=== PATIENT | female | born 1965 | race African-American/Black ===

== ENCOUNTER 2017-04-21 20:08 | Inpatient (IN) | payer MEDICAID, OTHER ==
[~2017-04-21] VITALS: Ht 165.1 cm; Wt 115.2 kg
[2017-04-21] MEDS ORDERED: MORPHINE SULFATE 4 MG/ML CPJ (NOT FOR IM USE) IV STA (22:26)
[2017-04-21] MEDS ORDERED: SODIUM CHLORIDE 0.9% 1,000 ML IV ONE (22:26)
[2017-04-21] MEDS ORDERED: FAMOTIDINE 20MG/2ML VIAL IV STA (22:26)
[2017-04-21] MEDS ORDERED: ONDANSETRON HCL 4MG/2ML VIAL IV STA (22:26)
[2017-04-21 22:43] LABS: BASOPHILS % 0.7 % (0.0-2.0); EOSINOPHILS % 0.7 % (0.0-5.0); HEMATOCRIT. 41.6 % (36.0-48.0); LYMPHOCYTES % 12.1 % (20.0-50.0); MEAN CORPUSCULAR VOLUME 83.3 fL (81.0-99.0); MEAN PLATELET VOLUME 8.9 fl (7.4-10.4); MONOCYTES % 10.3 % (2.0-8.0); NEUTROPHILS % 76.2 % (40.0-76.0); PLATELET 401 x1000/uL (130-400); RED CELL DISTRIBUTION WIDTH 14.6 % (11.6-14.6)
[2017-04-21 23:35] LABS: INR 1.3; PROTHROMBIN TIME 13.3 sec (9.4-11.6)
[2017-04-21 23:43] LABS: CARBON DIOXIDE 23 mEq/L (21-32); CHLORIDE 101 mEq/L (98-107); ETHANOL BLOOD < 10 mg/dL; TROPONIN I < 0.02 ng/mL (0.00-0.04)
[2017-04-22 00:37] LABS: CLARITY URINE CLOUDY (CLEAR); COLOR URINE DARK YELLOW (YELLOW); GLUCOSE URINE NEGATIVE (NEGATIVE); KETONES URINE 4+ (NEGATIVE); LEUKOCYTE ESTERASE URINE TRACE (NEGATIVE); NITRITE URINE POSITIVE (NEGATIVE); OCCULT BLOOD URINE NEGATIVE (NEGATIVE); PROTEIN URINE 2+ (NEGATIVE); SPECIFIC GRAVITY URINE 1.038 (1.005-1.030)
[2017-04-22 00:51] LABS: *AMPHETAMINES SCREEN URINE NEGATIVE (NEGATIVE); *BARBITURATES SCREEN URINE NEGATIVE (NEGATIVE); *BENZODIAZEPINES SCREEN URINE NEGATIVE (NEGATIVE); *COCAINE SCREEN URINE NEGATIVE (NEGATIVE); CANNABINOID URINE SCREEN PRESUMTIVE POSITIVE (NEGATIVE); METHADONE URINE SCREEN NEGATIVE (NEGATIVE); OPIATES URINE SCREEN PRESUMTIVE POSITIVE (NEGATIVE); PHENCYCLIDINE URINE SCREEN NEGATIVE (NEGATIVE)
[2017-04-22] MEDS ORDERED: SODIUM CHLORIDE 0.9% 1,000 ML IV ONE (00:59)
[2017-04-22] MEDS ORDERED: LEVOFLOXACIN 750MG PREMIX 150 ML IV SCH (01:00)
[2017-04-22] MEDS ORDERED: METRONIDAZOLE 500 MG PREMIX 100 ML IV SCH (01:00)
[2017-04-22 04:05] VITALS: BP 139/78
[2017-04-22] MEDS ORDERED: CLONIDINE 0.1MG TABLET PO PRN (04:30)
[2017-04-22] MEDS ORDERED: DIPHENHYDRAMINE 50MG/ML VIAL IV PRN (04:30)
[2017-04-22] MEDS ORDERED: MAGNESIUM/ALUMINUM HYDROXIDE/SIMETHICONE 30ML UDC PO PRN (04:30)
[2017-04-22] MEDS ORDERED: ONDANSETRON HCL 4MG/2ML VIAL IV PRN (04:30)
[2017-04-22] MEDS ORDERED: LEVOFLOXACIN 500MG PREMIX 100 ML IV ONE (04:30)
[2017-04-22] MEDS ORDERED: IOHEXOL-300 100 ML BOTTLE ONE (06:00)
[2017-04-22] MEDS ORDERED: SODIUM CHLORIDE 0.9% 10ML VIAL ONE (06:00)
[2017-04-22] MEDS: SODIUM CHLORIDE 0.9% 1,000 ML IV SCH ×2 (07:55→14:33)
[2017-04-22 08:17] VITALS: BP 133/67
[2017-04-22] MEDS ORDERED: ASPI-1159 PO (08:48)
[2017-04-22] MEDS ORDERED: ALBU2.5V13 NEB (08:48)
[2017-04-22] MEDS: FAMOTIDINE 20MG/2ML VIAL IV SCH ×2 (08:49→21:37)
[2017-04-22 09:17] LABS: BASOPHILS % 0.7 % (0.0-2.0); EOSINOPHILS % 0.6 % (0.0-5.0); HEMATOCRIT. 36.7 % (36.0-48.0); HEMOGLOBIN. 12.2 g/dL (12.0-16.0); LYMPHOCYTES % 9.5 % (20.0-50.0); MEAN CORPUSCULAR HEMOGLOBIN 27.7 pg (28.0-32.0); MEAN CORPUSCULAR VOLUME 83.4 fL (81.0-99.0); MEAN PLATELET VOLUME 8.2 fl (7.4-10.4); MONOCYTES % 11.8 % (2.0-8.0); NEUTROPHILS % 77.4 % (40.0-76.0); PLATELET 296 x1000/uL (130-400); RED CELL DISTRIBUTION WIDTH 14.2 % (11.6-14.6)
[2017-04-22 09:32] LABS: CARBON DIOXIDE 27 mEq/L (21-32); CHLORIDE 102 mEq/L (98-107)
[2017-04-22] MEDS: MORPHINE SULFATE 4 MG/ML CPJ (NOT FOR IM USE) IV PRN (10:20)
[2017-04-22 12:00] VITALS: BP 122/68
[2017-04-22 16:00] VITALS: BP 133/68
[2017-04-22] MEDS: ACETAMINOPHEN 325MG TABLET PO PRN (16:52)
[2017-04-22 20:32] VITALS: BP 141/82
[2017-04-23] MEDS: ACETAMINOPHEN 325MG TABLET PO PRN (00:23)
[2017-04-23 00:29] VITALS: BP 155/89
[2017-04-23 04:00] VITALS: BP 152/84
[2017-04-23 06:55] LABS: BASOPHILS % 0.3 % (0.0-2.0); EOSINOPHILS % 0.7 % (0.0-5.0); HEMATOCRIT. 36.6 % (36.0-48.0); HEMOGLOBIN. 11.9 g/dL (12.0-16.0); LYMPHOCYTES % 9.2 % (20.0-50.0); MEAN CORPUSCULAR HEMOGLOBIN 27.3 pg (28.0-32.0); MEAN CORPUSCULAR VOLUME 83.7 fL (81.0-99.0); MEAN PLATELET VOLUME 8.5 fl (7.4-10.4); MONOCYTES % 11.6 % (2.0-8.0); NEUTROPHILS % 78.2 % (40.0-76.0); PLATELET 282 x1000/uL (130-400); RED BLOOD CELL COUNT 4.37 mill/uL (4.2-5.4); RED CELL DISTRIBUTION WIDTH 14.3 % (11.6-14.6)
[2017-04-23 07:02] LABS: INR 1.3; PARTIAL THROMBOPLASTIN TIME 31.9 sec (23.4-31.0); PROTHROMBIN TIME 13.4 sec (9.4-11.6)
[2017-04-23] MEDS: SODIUM CHLORIDE 0.9% 1,000 ML IV SCH ×3 (07:44→21:16)
[2017-04-23 08:00] VITALS: BP 149/88
[2017-04-23 08:19] LABS: CARBON DIOXIDE 26 mEq/L (21-32); CHLORIDE 104 mEq/L (98-107)
[2017-04-23] MEDS: FAMOTIDINE 20MG/2ML VIAL IV SCH ×2 (09:08→21:16)
[2017-04-23] MEDS: LEVOFLOXACIN 500MG PREMIX 100 ML IV SCH (09:08)
[2017-04-23] MEDS: MORPHINE SULFATE 4 MG/ML CPJ (NOT FOR IM USE) IV PRN ×2 (09:32→14:21)
[2017-04-23] MEDS ORDERED: LIDOCAINE HCL 1% 20ML VIAL (Pyxis) INJ INFIL SCH (11:00)
[2017-04-23 12:00] VITALS: BP 171/87
[2017-04-23] MEDS ORDERED: HYDRALAZINE 5 MG in SODIUM CHLORIDE 0.9% 50 ML IV PRN (14:30)
[2017-04-23] MEDS ORDERED: HYDRALAZINE 20MG/ML VIAL IV PRN (15:00)
[2017-04-23 16:00] VITALS: BP 156/89
[2017-04-23 20:00] VITALS: BP 173/87
[2017-04-24] VITALS: BP 146/71
[2017-04-24] MEDS: MORPHINE SULFATE 4 MG/ML CPJ (NOT FOR IM USE) IV PRN (00:33)
[2017-04-24] MEDS: ACETAMINOPHEN 325MG TABLET PO PRN ×2 (00:39→17:11)
[2017-04-24 04:00] VITALS: BP 145/76
[2017-04-24] MEDS: SODIUM CHLORIDE 0.9% 1,000 ML IV SCH (05:31)
[2017-04-24 08:00] VITALS: BP 172/88
[2017-04-24] MEDS: LEVOFLOXACIN 500MG PREMIX 100 ML IV SCH (08:13)
[2017-04-24] MEDS: FAMOTIDINE 20MG/2ML VIAL IV SCH (08:13)
[2017-04-24 12:00] VITALS: BP 156/92
[2017-04-24 16:00] VITALS: BP 156/74
[2017-04-24 18:33] VITALS: BP 153/69
== END 2017-04-24 19:00 | disposition home or self-care (01) | DRG 249 ==
LOC: ER 21:50 → 6EST 04-22 01:08 → ENRESERV 04-22 01:38
PROVIDERS: ADMIT Internal Medicine; ATTEND Internal Medicine
DX: A08.4 Viral intestinal infection, unspecified (principal); R65.11 Systemic inflammatory response syndrome (SIRS) of non-infectious origin with acute organ dysfunction; E43 Unspecified severe protein-calorie malnutrition; K56.60 Unspecified intestinal obstruction; R65.10 Systemic inflammatory response syndrome (SIRS) of non-infectious origin without acute organ dysfunction; L02.211 Cutaneous abscess of abdominal wall; Z68.41 Body mass index [BMI] 40.0-44.9, adult; N39.0 Urinary tract infection, site not specified; I10 Essential (primary) hypertension; J45.909 Unspecified asthma, uncomplicated; E66.9 Obesity, unspecified; Z90.710 Acquired absence of both cervix and uterus; Z90.49 Acquired absence of other specified parts of digestive tract; Z88.8 Allergy status to other drugs, medicaments and biological substances
CPT/HCPCS: 36415; 71010; 74176; 74177; 80048; 80053; 80305; 81001; 83605; 83690; 84484; 85025; 85610; 85730; 87040; 93005; 96365; 96375; 99285; A4216; C1893; G0482; J1956; J2270; J2405; J3490; J7030; Q9967

== ENCOUNTER 2017-05-07 15:18 | Inpatient (IN) | payer MEDICAID ==
[~2017-05-07] VITALS: Ht 165.1 cm; Wt 115.2 kg
[~2017-05-07 15:18] MED LIST: ALBU2.5V13 NEB; ASPI-1159 PO; IOHEXOL-300 100 ML BOTTLE ONE; SODIUM CHLORIDE 0.9% 10ML VIAL ONE
[2017-05-07] MEDS ORDERED: MORPHINE SULFATE 4 MG/ML CPJ (NOT FOR IM USE) IV STA (16:24)
[2017-05-07] MEDS ORDERED: ONDANSETRON HCL 4MG/2ML VIAL IV STA (16:24)
[2017-05-07] MEDS ORDERED: SODIUM CHLORIDE 0.9% 1,000 ML IV ONE ×2 (16:24→16:49)
[2017-05-07] MEDS ORDERED: VANCOMYCIN 1 G PREMIX 200 ML IV ONE (17:00)
[2017-05-07] MEDS ORDERED: PIPERACILLIN/TAZ 3.375G PREMIX 50 ML IV ONE (17:00)
[2017-05-07 17:18] LABS: BASOPHILS % 0.4 % (0.0-2.0); HEMATOCRIT. 39.8 % (36.0-48.0); HEMOGLOBIN. 13.3 g/dL (12.0-16.0); LYMPHOCYTES % 7.4 % (20.0-50.0); MEAN CORPUSCULAR HEMOGLOBIN 27.3 pg (28.0-32.0); MEAN CORPUSCULAR VOLUME 81.7 fL (81.0-99.0); MEAN PLATELET VOLUME 8.4 fl (7.4-10.4); MONOCYTES % 12.5 % (2.0-8.0); NEUTROPHILS % 79.7 % (40.0-76.0); PLATELET 291 x1000/uL (130-400); RED BLOOD CELL COUNT 4.87 mill/uL (4.2-5.4); RED CELL DISTRIBUTION WIDTH 14.9 % (11.6-14.6)
[2017-05-07 17:25] LABS: CHLORIDE 98 mEq/L (98-107); INR 1.3
[2017-05-07 17:33] LABS: CARBON DIOXIDE 24 mEq/L (21-32)
[2017-05-07 20:00] VITALS: BP 152/86
[2017-05-07] MEDS ORDERED: ONDANSETRON HCL 4MG/2ML VIAL IV ONE (21:00)
[2017-05-07 22:00] VITALS: BP 152/86
[2017-05-08] VITALS: BP 153/91
[2017-05-08] MEDS: ONDANSETRON HCL 4MG/2ML VIAL IV PRN ×4 (02:29→23:45)
[2017-05-08] MEDS: DEXT 5%/0.45% NACL 1000ML 1,000 ML IV SCH ×2 (02:30→15:28)
[2017-05-08] MEDS: HYDROMORPHONE HCL/PF 2MG/ML CPJ IV PRN ×4 (02:30→23:45)
[2017-05-08 04:00] VITALS: BP 150/86
[2017-05-08] MEDS: LEVOFLOXACIN 500MG PREMIX 100 ML IV SCH (04:06)
[2017-05-08] MEDS: METRONIDAZOLE 500 MG PREMIX 100 ML IV SCH ×3 (04:06→20:40)
[2017-05-08 08:00] VITALS: BP 116/77
[2017-05-08] MEDS ORDERED: INFLUENZA VIRUS VACCINE 0.5ML SYR IM ONE (08:00)
[2017-05-08] MEDS ORDERED: PNEUMOCOCCAL 23-VAL P-SAC VAC 0.5 ML IM ONE (08:00)
[2017-05-08] MEDS: PANTOPRAZOLE SODIUM 40 MG/VIAL IV SCH (08:31)
[2017-05-08 09:35] LABS: HEMATOCRIT. 36.5 % (36.0-48.0); MEAN CORPUSCULAR VOLUME 82.5 fL (81.0-99.0); MEAN PLATELET VOLUME 8.5 fl (7.4-10.4); PLATELET 260 x1000/uL (130-400); RED BLOOD CELL COUNT 4.42 mill/uL (4.2-5.4)
[2017-05-08 10:06] LABS: CARBON DIOXIDE 29 mEq/L (21-32); CHLORIDE 100 mEq/L (98-107)
[2017-05-08 12:00] VITALS: BP 137/86
[2017-05-08] MEDS ORDERED: LIDOCAINE HCL 1% 20ML VIAL (Pyxis) INJ ONE (12:46)
[2017-05-08] MEDS ORDERED: SODIUM BICARBONATE 4.2% 5 MEQ/10 ML DISP.SYRIN IV ONE (12:46)
[2017-05-08 14:04] LABS: PLATELET ESTIMATE NORMAL
[2017-05-08 16:00] VITALS: BP 125/79
[2017-05-08 20:00] VITALS: BP 130/78
[2017-05-08] MEDS: METOCLOPRAMIDE HCL 10MG/2ML VIAL IV PRN (20:45)
[2017-05-09] VITALS: BP_SYST 130; BP_SYST 132; BP_DIAS 67; BP_DIAS 78
[2017-05-09] MEDS: METOCLOPRAMIDE HCL 10MG/2ML VIAL IV PRN (02:35)
[2017-05-09] MEDS: METRONIDAZOLE 500 MG PREMIX 100 ML IV SCH ×3 (04:00→20:24)
[2017-05-09] MEDS: LEVOFLOXACIN 500MG PREMIX 100 ML IV SCH (06:27)
[2017-05-09] MEDS: DEXT 5%/0.45% NACL 1000ML 1,000 ML IV SCH ×2 (06:36→17:38)
[2017-05-09 08:15] VITALS: BP 140/83
[2017-05-09] MEDS: PANTOPRAZOLE SODIUM 40 MG/VIAL IV SCH (09:08)
[2017-05-09] MEDS: ONDANSETRON HCL 4MG/2ML VIAL IV PRN ×2 (09:37→20:23)
[2017-05-09 12:10] VITALS: BP 134/72
[2017-05-09 15:39] LABS: BASOPHILS % 0.2 % (0.0-2.0); EOSINOPHILS % 0.3 % (0.0-5.0); HEMATOCRIT. 33.9 % (36.0-48.0); LYMPHOCYTES % 9.3 % (20.0-50.0); MEAN CORPUSCULAR HEMOGLOBIN 26.8 pg (28.0-32.0); MEAN CORPUSCULAR VOLUME 82.2 fL (81.0-99.0); MEAN PLATELET VOLUME 8.4 fl (7.4-10.4); MONOCYTES % 12.8 % (2.0-8.0); NEUTROPHILS % 77.4 % (40.0-76.0); PLATELET 265 x1000/uL (130-400); RED BLOOD CELL COUNT 4.12 mill/uL (4.2-5.4); RED CELL DISTRIBUTION WIDTH 15.1 % (11.6-14.6)
[2017-05-09 16:30] VITALS: BP 127/77
[2017-05-09] MEDS: KETOROLAC 15MG/ML VIAL IV PRN (17:52)
[2017-05-09 20:00] VITALS: BP 134/81
[2017-05-10] VITALS: BP 134/76
[2017-05-10] MEDS: KETOROLAC 15MG/ML VIAL IV PRN ×2 (00:48→12:06)
[2017-05-10 04:00] VITALS: BP 146/93
[2017-05-10] MEDS: LEVOFLOXACIN 500MG PREMIX 100 ML IV SCH (04:24)
[2017-05-10] MEDS: METRONIDAZOLE 500 MG PREMIX 100 ML IV SCH ×3 (04:24→21:06)
[2017-05-10 06:25] LABS: BASOPHILS % 0.3 % (0.0-2.0); EOSINOPHILS % 0.4 % (0.0-5.0); HEMATOCRIT. 32.2 % (36.0-48.0); HEMOGLOBIN. 10.5 g/dL (12.0-16.0); LYMPHOCYTES % 13.5 % (20.0-50.0); MEAN CORPUSCULAR HEMOGLOBIN 26.8 pg (28.0-32.0); MEAN CORPUSCULAR VOLUME 82.3 fL (81.0-99.0); MEAN PLATELET VOLUME 8.4 fl (7.4-10.4); MONOCYTES % 13.4 % (2.0-8.0); NEUTROPHILS % 72.4 % (40.0-76.0); PLATELET 247 x1000/uL (130-400); RED BLOOD CELL COUNT 3.91 mill/uL (4.2-5.4); RED CELL DISTRIBUTION WIDTH 15.3 % (11.6-14.6)
[2017-05-10 06:56] LABS: CARBON DIOXIDE 30 mEq/L (21-32); CHLORIDE 102 mEq/L (98-107)
[2017-05-10 08:00] VITALS: BP 111/69
[2017-05-10] MEDS ORDERED: METOCLOPRAMIDE HCL 10MG/2ML VIAL IV PRN (08:15)
[2017-05-10] MEDS: FAMOTIDINE 20MG/2ML VIAL IV SCH ×2 (08:35→21:07)
[2017-05-10] MEDS: METOCLOPRAMIDE HCL 10MG/2ML VIAL IV PRN ×2 (08:35→21:15)
[2017-05-10] MEDS: DEXT 5%/0.45% NACL 1000ML 1,000 ML IV SCH (08:36)
[2017-05-10 12:10] VITALS: BP 169/94
[2017-05-10 16:00] VITALS: BP 131/67
[2017-05-10] MEDS ORDERED: POTASSIUM CHLORIDE 20MEQ/PACKET PO NR (18:30)
[2017-05-10 20:00] VITALS: BP 141/75
[2017-05-11] VITALS: BP 150/89
[2017-05-11] MEDS: DEXT 5%/0.45% NACL 1000ML 1,000 ML IV SCH ×2 (00:51→16:45)
[2017-05-11] MEDS: KETOROLAC 15MG/ML VIAL IV PRN ×3 (00:52→20:30)
[2017-05-11] MEDS: ONDANSETRON HCL 4MG/2ML VIAL IV PRN ×4 (00:52→20:29)
[2017-05-11 04:00] VITALS: BP 166/88
[2017-05-11] MEDS: METRONIDAZOLE 500 MG PREMIX 100 ML IV SCH ×3 (04:43→20:30)
[2017-05-11] MEDS: METOCLOPRAMIDE HCL 10MG/2ML VIAL IV PRN (05:43)
[2017-05-11] MEDS: LEVOFLOXACIN 500MG PREMIX 100 ML IV SCH (05:47)
[2017-05-11 08:00] VITALS: BP 153/101
[2017-05-11] MEDS: FAMOTIDINE 20MG/2ML VIAL IV SCH ×2 (08:32→20:29)
[2017-05-11 12:00] VITALS: BP 154/96
[2017-05-11 16:00] VITALS: BP 153/87
[2017-05-11 20:00] VITALS: BP 152/93
[2017-05-12] VITALS: BP 168/96
[2017-05-12 04:00] VITALS: BP 157/97
[2017-05-12] MEDS: METOCLOPRAMIDE HCL 10MG/2ML VIAL IV PRN ×2 (04:12→20:44)
[2017-05-12] MEDS: METRONIDAZOLE 500 MG PREMIX 100 ML IV SCH ×3 (04:17→20:44)
[2017-05-12] MEDS: LEVOFLOXACIN 500MG PREMIX 100 ML IV SCH (06:08)
[2017-05-12 08:00] VITALS: BP 150/94
[2017-05-12] MEDS: ONDANSETRON HCL 4MG/2ML VIAL IV PRN ×2 (08:13→17:14)
[2017-05-12] MEDS: FAMOTIDINE 20MG/2ML VIAL IV SCH ×2 (09:04→21:59)
[2017-05-12 12:00] VITALS: BP 143/92
[2017-05-12] MEDS: DEXT 5%/0.45% NACL 1000ML 1,000 ML IV SCH ×2 (12:14→12:17)
[2017-05-12 16:00] VITALS: BP 175/91
[2017-05-12] MEDS: KETOROLAC 15MG/ML VIAL IV PRN (17:15)
[2017-05-12 20:00] VITALS: BP 170/90
[2017-05-13] VITALS: BP 174/95
[2017-05-13 04:00] VITALS: BP 184/103
[2017-05-13] MEDS: METRONIDAZOLE 500 MG PREMIX 100 ML IV SCH ×3 (04:01→21:58)
[2017-05-13] MEDS: ONDANSETRON HCL 4MG/2ML VIAL IV PRN ×2 (04:02→15:45)
[2017-05-13] MEDS: LEVOFLOXACIN 500MG PREMIX 100 ML IV SCH (05:52)
[2017-05-13] MEDS: METOCLOPRAMIDE HCL 10MG/2ML VIAL IV PRN ×2 (05:52→21:57)
[2017-05-13 08:00] VITALS: BP 179/102
[2017-05-13] MEDS: FAMOTIDINE 20MG/2ML VIAL IV SCH ×2 (10:19→21:57)
[2017-05-13] MEDS: HYDRALAZINE 20MG/ML VIAL IV PRN ×3 (10:19→23:44)
[2017-05-13] MEDS: KETOROLAC 15MG/ML VIAL IV PRN ×3 (10:31→23:58)
[2017-05-13 12:00] VITALS: BP 168/95
[2017-05-13] MEDS: DEXT 5%/0.45% NACL 1000ML 1,000 ML IV SCH (15:35)
[2017-05-13 16:00] VITALS: BP 177/102
[2017-05-13 20:00] VITALS: BP 182/102
[2017-05-14] VITALS (9 sets, daily range): BP systolic 110–185; BP diastolic 76–110
[2017-05-14] MEDS: DEXT 5%/0.45% NACL 1000ML 1,000 ML IV SCH (04:55)
[2017-05-14] MEDS: METRONIDAZOLE 500 MG PREMIX 100 ML IV SCH ×3 (05:02→21:01)
[2017-05-14] MEDS: HYDRALAZINE 20MG/ML VIAL IV PRN ×3 (06:06→21:01)
[2017-05-14] MEDS: METOCLOPRAMIDE HCL 10MG/2ML VIAL IV PRN ×2 (06:06→14:35)
[2017-05-14] MEDS: LEVOFLOXACIN 500MG PREMIX 100 ML IV SCH (06:07)
[2017-05-14 06:47] LABS: BASOPHILS % 0.7 % (0.0-2.0); EOSINOPHILS % 2.6 % (0.0-5.0); HEMATOCRIT. 34.5 % (36.0-48.0); HEMOGLOBIN. 11.4 g/dL (12.0-16.0); LYMPHOCYTES % 20.4 % (20.0-50.0); MEAN CORPUSCULAR HEMOGLOBIN 26.8 pg (28.0-32.0); MEAN CORPUSCULAR VOLUME 81.3 fL (81.0-99.0); MEAN PLATELET VOLUME 7.9 fl (7.4-10.4); MONOCYTES % 13.8 % (2.0-8.0); NEUTROPHILS % 62.5 % (40.0-76.0); PLATELET 303 x1000/uL (130-400); RED BLOOD CELL COUNT 4.24 mill/uL (4.2-5.4); RED CELL DISTRIBUTION WIDTH 15.4 % (11.6-14.6)
[2017-05-14 08:23] LABS: CARBON DIOXIDE 27 mEq/L (21-32); CHLORIDE 101 mEq/L (98-107)
[2017-05-14] MEDS: FAMOTIDINE 20MG/2ML VIAL IV SCH ×2 (09:34→21:01)
[2017-05-14] MEDS: ONDANSETRON HCL 4MG/2ML VIAL IV PRN (09:34)
[2017-05-14] MEDS ORDERED: DEXT 5%/0.45% NACL KCL 40MEQ/L 1,000 ML IV ONE (14:30)
[2017-05-14] MEDS: MORPHINE SULFATE 4 MG/ML CPJ (NOT FOR IM USE) IV PRN ×2 (14:35→22:48)
[2017-05-14] MEDS ORDERED: PROMETHAZINE HCL 25MG TABLET PO PRN (23:00)
[2017-05-15] VITALS (8 sets, daily range): BP systolic 148–184; BP diastolic 83–109
[2017-05-15] MEDS: HYDRALAZINE 20MG/ML VIAL IV PRN ×2 (02:03→17:03)
[2017-05-15] MEDS: METRONIDAZOLE 500 MG PREMIX 100 ML IV SCH (05:50)
[2017-05-15] MEDS: LEVOFLOXACIN 500MG PREMIX 100 ML IV SCH (08:44)
[2017-05-15] MEDS: METOCLOPRAMIDE HCL 10MG/2ML VIAL IV PRN (08:46)
[2017-05-15] MEDS: FAMOTIDINE 20MG/2ML VIAL IV SCH ×2 (08:46→20:58)
[2017-05-15] MEDS ORDERED: CLONIDINE HCL 0.2MG/24HR PATCH TD SCH (09:00)
[2017-05-15] MEDS ORDERED: MORPHINE SULFATE 2 MG/ML CPJ (NOT FOR IM USE) IV PRN (17:45)
[2017-05-15] MEDS: PROCHLORPERAZINE 10MG/2ML VIAL IV PRN (17:46)
[2017-05-15] MEDS ORDERED: ACETAMINOPHEN 650MG/20.3ML UDC PO PRN (21:30)
[2017-05-15] MEDS ORDERED: DEXT 5%/0.45% NACL 1000ML 1,000 ML IV SCH (21:30)
[2017-05-16] VITALS: BP 185/100
[2017-05-16] MEDS: HYDRALAZINE 20MG/ML VIAL IV PRN ×2 (00:16→06:16)
[2017-05-16 01:04] VITALS: BP 171/91
[2017-05-16] MEDS: PROCHLORPERAZINE 10MG/2ML VIAL IV PRN (03:10)
[2017-05-16 04:00] VITALS: BP 170/94
[2017-05-16] MEDS: FAMOTIDINE 20MG/2ML VIAL IV SCH (08:23)
== END 2017-05-16 11:00 | disposition left against medical advice (07) | DRG 383 ==
LOC: ER 16:27 → EDBEDREQ 16:28 → 5WST 19:50 → EDBEDREQ 19:54 → EDBEDREQTM 19:54 → ENRESERV 20:49
PROVIDERS: ADMIT Hospitalist; ATTEND Hospitalist
PROC: 0W9F30Z Drainage of Abdominal Wall with Drainage Device, Percutaneous Approach (ICD-10-PCS; principal; 2017-05-08)
DX: L02.211 Cutaneous abscess of abdominal wall (principal); K65.1 Peritoneal abscess; E43 Unspecified severe protein-calorie malnutrition; K56.600 Partial intestinal obstruction, unspecified as to cause; K56.7 Ileus, unspecified; Z68.41 Body mass index [BMI] 40.0-44.9, adult; K76.0 Fatty (change of) liver, not elsewhere classified; I10 Essential (primary) hypertension; J45.909 Unspecified asthma, uncomplicated; Z90.49 Acquired absence of other specified parts of digestive tract; Z90.710 Acquired absence of both cervix and uterus; Z88.8 Allergy status to other drugs, medicaments and biological substances
CPT/HCPCS: 36415; 74000; 74177; 76942; 80048; 80053; 83605; 83690; 83735; 85025; 85610; 87040; 87070; 87077; 87186; 87205; 96365; 96367; 96375; 96376; 99291; A4216; C1729; C1769; C9113; J0360; J0780; J1170; J1885; J1956; J2270; J2405; J2543; J2765; J3370; J3490; J7030; J7040; L8514; Q0169; Q9967